=== PATIENT | male | born 1960 | race Two or more races ===

== ENCOUNTER 2020-07-04 10:04 | Emergency (ER) | payer MEDICAID, OTHER ==
[~2020-07-04] VITALS: Ht 170.2 cm; Wt 5.5 kg
[2020-07-04 11:15] VITALS: BP 136/79
== END 2020-07-04 11:43 | disposition home or self-care (01) ==
LOC: ER 10:04
DX: T16.2XXA Foreign body in left ear, initial encounter (principal); H66.92 Otitis media, unspecified, left ear; I10 Essential (primary) hypertension; X58.XXXA Exposure to other specified factors, initial encounter; Y93.89 Activity, other specified; Y92.89 Other specified places as the place of occurrence of the external cause; Y99.8 Other external cause status